=== PATIENT | female | born 1960 | race Caucasian/White ===

== ENCOUNTER 2020-12-04 07:34 | Outpatient (CLI) | payer BC, SELFPAY ==
--- NOTE | 2020-12-04 10:18 | PFTS_ITS ---
Date of Study:12/04/20 Date of Dictation: 12/04/2020 MECHANICS: Pre bronchodilator forced vital capacity (FVC) is normal. Pre bronchodilator forced expiratory volume in one second (FEV1) is normal. FEV1/FVC is reduced. There is no postbronchodilator study. FLOW VOLUME LOOP: Normal . LUNG VOLUMES: TLC is normal. RV is normal. DIFFUSING CAPACITY FOR CARBON MONOXIDE: Normal . INTERPRETATION: The spirometry suggestive of mild obstructive ventilatory defect. Lung volumes and gas transfer are normal. Correlate clinically MTDD
== END 2020-12-04 07:35 | disposition home or self-care (01) ==
LOC: RT 07:41
PROVIDERS: PCP Family Medicine; Visit Provider Family Medicine
DX: J44.9 Chronic obstructive pulmonary disease, unspecified (principal); F17.210 Nicotine dependence, cigarettes, uncomplicated
CPT/HCPCS: 94010; 94726; 94729

== ENCOUNTER → 2025-03-30 15:59 | Outpatient (BNVA) | payer BC, SELFPAY | PROVIDERS: PCP Family Medicine; Visit Provider Emergency Medicine | DX: M25.872 Other specified joint disorders, left ankle and foot (principal) | CPT/HCPCS: 73610 ==